=== PATIENT | male | born 1995 | race Caucasian/White ===

== ENCOUNTER 2017-07-06 08:55 | Emergency (ER) | payer OTHER ==
[~2017-07-06] VITALS: Ht 188 cm; Wt 102.3 kg
[2017-07-06 08:58] VITALS: Ht 188 cm; Wt 102.3 kg
[2017-07-06] MEDS ORDERED: ACETAMINOPHEN 500 MG TAB PO STA (09:41)
[2017-07-06] MEDS ORDERED: DIPHTH/TET/ACEL PERTUSS (ADULT) 0.5 ML VIAL IM* ONE (10:00)
[2017-07-06] MEDS ORDERED: LIDOCAINE 1% (MDV) 20 ML INJ SC ONE (10:00)
[2017-07-06] MEDS ORDERED: IBUP-1542 PO (10:52)
[2017-07-06] MEDS ORDERED: CEPH-443 PO (10:52)
--- NOTE | 2017-07-06 10:59 | ERD ---
ER Documentation Chief Complaint Chief Complaint LAC ON LEFT PALM HPI This is a 21-year-old male presents the emergency department today for laceration on his left hand that he sustained while trying to open a package with a knife. States he does not know when his last tetanus vaccine was. Denies any fevers or chills. ROS All systems reviewed and are negative except as per history of present illness. Medications Home Meds Active Scripts Ibuprofen* (Motrin*) 600 Mg Tab, 600 MG PO Q6, #30 TAB Prov:BRENT HEATH PA-C 07/06/17 Cephalexin* (Keflex*) 500 Mg Capsule, 500 MG PO QID for 7 Days, CAP Prov:BRENT HEATH PA-C 07/06/17 Allergies Allergies: Coded Allergies: No Known Allergy (Unverified , 07/06/17) PMhx/Soc Medical and Surgical Hx: pt denies Medical Hx, pt denies Surgical Hx Hx Alcohol Use: No Hx Substance Use: No Hx Tobacco Use: No Smoking Status: Never smoker Physical Exam Vitals Vital Signs Date Time Temp Pulse Resp B/P Pulse Ox O2 Delivery O2 Flow Rate FiO2 07/06/17 08:58 99.0 83 17 140/81 98 Physical Exam Const: NAD Head: Atraumatic Eyes: Normal Conjunctiva ENT: Normal External Ears, Nose and Mouth. Neck: Full range of motion..~ No meningismus. Resp: Clear to auscultation bilaterally Cardio: Regular rate and rhythm, no murmurs Abd: Soft, non tender, non distended. Normal bowel sounds Skin: No petechiae or rashes MSK: Left hand with no obvious deformity. No effusion. Evidence of 1.5 cm laceration palmar aspect with subcutaneous fat showing. No evidence of tendon involvement. Full active range of motion of fingers and wrist. No evidence of foreign body. Neur: Awake and alert Psych: Normal Mood and Affect Results 24 hrs Current Medications Medications (Trade) Dose Ordered Sig/Freida Route PRN Reason Start Time Stop Time Status Last Admin Dose Admin Diphtheria/ Tetanus/Acell Pertussis (Adacel) 0.5 ml ONCE ONCE IM* 07/06/17 10:00 07/06/17 10:01 DC 07/06/17 09:50 Acetaminophen (Tylenol Tab) 500 mg ONCE STAT PO 07/06/17 09:41 07/06/17 09:42 DC 07/06/17 09:49 Lidocaine (Xylocaine 1% (Mdv) 20 ml) 20 ml ONCE ONCE SC 07/06/17 10:00 07/06/17 10:01 DC Procedures/MDM This is a right handed 21-year-old male who presents the emergency department today for a laceration on his left hand he sustained earlier this morning while trying to open packaging with a knife. Exam patient is a 1.5 cm laceration in the palmar aspect. There was some evidence of subcutaneous fat showing and I do not feel there would be good wound closure with Steri-Strips or Dermabond. I explained the risks and benefits of using sutures and the patient agreed to proceed. Patient wound was cleaned in the usual sterile fashion. Patient tolerated the procedure well and there were no complications. Patient tetanus was updated here in the emergency department he was also given Tylenol for pain. I do not feel the patient requires imaging at this time. There is no evidence of foreign body and no evidence of tendon involvement in the wound is somewhat superficial. Low suspicion for acute fracture, dislocation, foreign body. Laceration Repair by me: Anesthesia: 1% lidocaine locally 1. 5 cc Location: left hand palmar surface Tendon/Joint/Nerves: No injury Foreign body: None detected after copious irrigation and exploration Technique: 3 Simple Interrupted Sutures 4-0 nylon Complexity: No subcutaneous sutures/mucosal repair/ edge excision Post Closure Length: 1.5 cm cm Patient's bleeding was easily controlled in the department and there is no indication of anemia. No evidence of compartment syndrome, neurologic injury, vascular injury, open joint, tendon laceration, or foreign body. Patient is appropriate for outpatient follow up. 48 hour wound check. Scar minimization instructions given. Patient was given prescription for Keflex and Motrin for home. He was instructed return in 48 hours for wound check and again in 7-10 days for suture removal. At this time the patient is stable for discharge and outpatient management. Patient should follow up with their PCP in the next 1-2 days. They may return to the emergency department sooner for any persistent or worsening of symptoms. Patient understood and agreed with the plan. Departure Diagnosis: Primary Impression: Laceration Condition: Fair Patient Instructions: Laceration, Hand [facility] Usted se flores hecho un examen mdico de control que le indica que no est en ezra condicin que requiera tratamiento urgente en el Departamento de Emergencia. Un estudio ms profundo y el tratamiento de ramos condicin pueden esperar sin ningn riesgo hasta que usted sea atendida/o en el consultorio de ramos mdico o ezra cl vivian. Es responsabilidad suya arreglar ezar mela para el seguimiento del [place]. MANEJO DE CONDICIONES NO URGENTES EN EL FUTURO 1) Si usted tiene un mdico de atencin primaria: Usted debera llamar a ramos mdico de atencin primaria antes de venir al departamento de emergencia. Despus de las horas de consultorio, ramos doctor o ramos asociado/a est disponible por telfono. El mdico o enfermero de mervin en el servicio telefnico puede asesorarle por effie medio para atender el problema, o [place] contrario se puede programar ezra mela. 2) Si usted no tiene un mdico de atencin primaria: Llame al mdico o clnica de referencia que aparece abajo ondina las horas de consultorio para hacer ezra mela para que le vean. CLINICAS: [facility] [phone] [facility] [phone] [facility] [facility] [phone] [facility] [place] [phone] [facility] [place] [phone] [facility]. [phone] [address] Additional Instructions: Llame al doctor MAANA y abida ezra MELA PARA DENTRO DE 1-2 SALOMON.Dgale a la secretaria que nosotros le instruimos hacer esta mela.Avise o llame si ramos condicin se empeora antes de la mela. Regresa aqui si peor o no mejor. Wound check in 48 hours. Suture removal in 7-10 days. Take antibiotics as prescribed. Keep wound clean and dry Take tylenol or Motrin for pain BRENT HEATH PA-C Jul 06, 2017 10:59
== END 2017-07-06 11:01 | disposition home or self-care (01) ==
LOC: FTE 08:55
DX: S61.412A Laceration without foreign body of left hand, initial encounter (principal); W26.0XXA Contact with knife, initial encounter; Y92.9 Unspecified place or not applicable; Z23 Encounter for immunization
CPT/HCPCS: 12001; 90471; 90715; Z7502; Z7610